=== PATIENT | female | born 1990 | race Caucasian/White ===

== ENCOUNTER → 2017-01-26 | Outpatient (CLI) | payer BC ==
--- NOTE | ~2017-01-26 | MR18 ---
[facility] A Service of [facility] RADIOLOGY TEXT RESULTS PATIENT: TREVON ZARCO LOCATION: [facility] : 86 UNIT #: [id number] AGE: [address]: Jessica Khanna MD SEX: F ORDER DR: [id number] [facility] [address] [place], [place] [address] [id number] O MR#: [id number] Acc #: [id number] NAME: TREVON ZARCO : 1990 SEX: F STUDY DATE/TIME: 01/26/2017 16:47 UNIT: [facility] ROOM: STUDY DESCRIPTION: MR Brain Wo Contrast Attending Physician: Jessica Khanna M.D. Referring Physician: Jessica Khanna M.D. Ordering Physician: Jessica Khanna M.D. Primary Care Physician: Jessica Khanna M.D. MRI CENTER REPORT This report is preliminary unless electronic signature is present. EXAM MRI of the brain without contrast HISTORY Dizziness and syncope. Vertigo for years getting worse for 5 months. Syncope 01/07/2017 in her bathroom. No history of surgery or cancer. COMMENT MRI of the brain was performed without contrast using routine 1.5T imaging technique. Comparison study is from 2012. A pituitary exam. I do not have prior imaging of the whole brain. There is no evidence for a recent ischemic insult on the diffusion series. Bone marrow signal intensity is cellular but this is probably within the range of normal for age group, particularly given habitus. Again there is a partially empty sella. No Chiari-I malformation. Small amount of fluid or inflammatory change in the mastoid air cells, left greater than right. Paranasal sinus disease is present including an air-fluid level in the right maxillary sinus with mucosal disease. Moderate mucosal disease in the bilateral sphenoid sinuses partial opacification of the bilateral ethmoid air cells right greater than left anterior greater than posterior. Frontal sinuses are aplastic or hypoplastic. There is no extraaxial fluid collection. There is no intracranial mass effect. The major intracranial flow voids are maintained. The ventricles are normal in size and configuration. The scott-white junction is well-maintained. There is no MRI evidence for intracranial hemorrhage. IMPRESSION 1. Essentially normal MRI of the brain without contrast. Redemonstrated is a partially empty sella. 2. Paranasal sinus disease including air-fluid level in the right maxillary sinus consistent with a component of acute sinusitis. See above and correlate clinically. [facility] A Service of [facility] RADIOLOGY TEXT RESULTS PATIENT: TREVON ZARCO LOCATION: [facility] : [birth year] UNIT #: [id number] AGE: [address]: Jessica Khanna MD SEX: F ORDER DR: Dictated by... Gretchen Riley M.D. THIS IS AN ELECTRONICALLY VERIFIED REPORT Gretchen Riley M.D. at 01/28/2017 3:48 PM Gurvinder TD: 01/28/2017 12:12 JOB #: [id number] [facility] REPORT Page 1 of 1 COPY
== END | disposition home or self-care (01) ==
LOC: CMRI 16:07
DX: R42 Dizziness and giddiness (principal); R55 Syncope and collapse; J32.4 Chronic pansinusitis
CPT/HCPCS: 70551